=== PATIENT | female | born 1930 | race Caucasian/White ===

== ENCOUNTER 2016-08-21 16:55 | Inpatient (IN) | payer MEDICARE ==
[~2016-08-21] VITALS: Ht 162.6 cm; Wt 79.9 kg
--- NOTE | ~2016-08-21 | CATH ---
Cardiac Diagnostic + PCI Report Demographics Patient Name JESSIE Mayo Gender Female Date of 1930 Age 85 year(s) Patient Number [id number] Date of Study 08/26/2016 Visit Number [id number] Room Number G6316 [place] [id number] Ht 162.56 cm Wt 79.5 kg Referring Crow Reed Primary Physician Physician Performing Andriy Secondary Physician Physician Perla RAO Diagnostic Andriy Assisting Physician Physician Perla RAO Interventional Andriy Physician Aluminum Molding Machine Operator Physician Perla RAO Findings and Conclusions Diagnostic Findings and Conclusion Calcifications involving proximal coronary vessels. RCA stenosis of 90-99%. LAD stenosis 70%. Diagnostic Recommendations PCI of RCA and LAD. Interventional Findings and Conclusion PCI and GEOFF of RCA 90-99% decreased to 0%. PCI and GEOFF of LAD proximal / mid 70% to 0%. Interventional Recommendations Patient was transferred to PCU in stable condition. Patient will be observed overnight. Procedure Description The patient was brought to the diagnostic cardiac catheterization-EP laboratory in the fasting, non-sedated state. Informed consent was obtained in the written and verbal form after the risks and benefits were explained. The patient had no further questions and agreed to proceed. The planned puncture-incision site(s) were shaved and prepped with ChloraPrep and draped in the usual sterile manner. Conscious sedation, supplemental oxygen, and pain control medications were delivered by a registered nurse under physician guidance. Surface ECG rhythm, blood pressure measurement, and pulse oximetry were monitored throughout the procedure. Arterial access. The access site was infiltrated with lidocaine. The vessel was entered with the Seldinger technique. A sheath was advanced into the vessel and used for catheter placement. Selective left coronary angiography. A catheter was advanced into the left coronary vessel ostium under Fluoroscopic guidance. Contrast was injected by hand. Images were obtained in multiple projections. Selective right coronary angiography. A catheter was advanced into the right coronary vessel ostium under fluoroscopic guidance. Contrast was injected by hand. Images were obtained in multiple projections. Left heart catheterization. A catheter was advanced across the aortic valve to the left ventricle under fluoroscopic guidance. Resting hemodynamics were obtained. Stent Placement: A guiding catheter was used to intubate the vessel. A 0.14 wire was used to cross the lesion. A Drug Eluting Stent was placed in the RCA x2. Post placement angiograms were performed. Stent Placement: A guiding catheter was used to intubate the vessel. A 0.14 wire was used to cross the lesion. A Drug Eluting Stent was placed in the LAD. Post placement angiograms were performed. Arterial artery hemostasis was achieved. The patient was transferred to a regular nursing floor via cart accompanied by a nurse. The patient left the laboratory in stable condition. Diagnostic Cath Status: Urgent Interventional Cath Status: Urgent Procedure Procedure Type Diagnostic procedure:Angiography:, Coronary Angios w/[facility] PCI procedure:Drug Eluting Coronary Stent:, LAD, RCA Indications: Arrhythmias, Hypertension, non-sustained VTach and Supraventricular Tachycardia. The procedure was explained in detail to the patient. Risks, complications and alternative treatments were reviewed. Written consent was obtained. Medications Reviewed with Patient prior to Procedure. Angiographic Findings Dominance: Right Cardiac Arteries and Lesion Findings LMCA: Luminal irregularities. LAD: Lesion on Mid LAD: Mid subsection.70% stenosis 18 mm length reduced to 0%. Pre procedure TIFFANY III flow was noted. Post Procedure TIFFANY III flow was present. The guidewire cross was successful.The lesion was diagnosed as a low risk lesion. Devices used - Luge Wire .014 x 182. Number of passes: 1. - Emerge Balloon 3.0 x 15. 2 inflation(s) to a max pressure of: 10 abram. - Alpine Stent 3.25 x 18. 1 inflation(s) to a max pressure of: 14 abram. Lesion on 1st Diag: Proximal subsection.70% stenosis . Comments:Small LCx: Lesion on Prox CX: Proximal subsection.40% stenosis . RCA: Lesion on Prox RCA: Distal subsection.90% stenosis 20 mm length reduced to 0%. Pre procedure TIFFANY II flow was noted. Post Procedure TIFFANY III flow was present. The guidewire cross was successful.The lesion was diagnosed as a high risk lesion.Culprit lesion. Treatment results:Interventional treatment was successful. Devices used - Verrata Pressure Wire. Number of passes: 1. - Luge Wire .014 x 182. Number of passes: 2. - Runthrough NS .014 x 180. Number of passes: 1. - Whisper Wire .014 x 190. Number of passes: 1. - Luge Wire .014 x 300. Number of passes: 1. - Emerge Balloon 2.0 x 15. 1 inflation(s) to a max pressure of: 14 abram. - Emerge Balloon 3.0 x 15. 1 inflation(s) to a max pressure of: 10 abram. - Promus Premier 3.0 x 20 Stent. 1 inflation(s) to a max pressure of: 16 abram. Lesion on Prox RCA: Proximal subsection.8 mm length . Pre procedure TIFFANY II flow was noted. Culprit lesion. Devices used - Promus Premier 3.0 x 8 Stent. 1 inflation(s) to a max pressure of: 17 abram. Lesion on Mid RCA: Mid subsection.50% stenosis . Coronary Tree Procedure Data Procedure Date Date: 08/26/2016Start: 02:13 PMEnd: 04:52 PM Entry Locations - Retrograde Percutaneous access was performed through the Right Femoral artery (Primary location). A 7 Fr sheath was inserted. Closure Comments: Angioseal unsuccessful. Manual pressure held by Michelle Escobar for 20 minutes. Femstop applied at 107mm/hg. Procedure Medications Order and Administration + + + + + !Time !Medication !Dosage !Route ! + + + + + !08/26/2016 02:00 PM !0.9% NaCl !100 ml !I.V. drip ! + + + + + !08/26/2016 02:09 PM !Fentanyl !25 mcg !I.V. ! + + + + + !08/26/2016 02:14 PM !Oxygen !2 l/min !NC ! + + + + + !08/26/2016 02:33 PM !Heparin (ACC_3) !7500 units !I.V. ! + + + + + !08/26/2016 02:36 PM !Integrilin (ACC_7) !mg !I.V. bolus ! + + + + + !08/26/2016 02:45 PM !Heparin (ACC_3) !1000 units !I.V. bolus ! + + + + + !08/26/2016 02:45 PM !Integrilin (ACC_7) !2 mcg/kg/min !I.V. drip ! + + + + + !08/26/2016 02:47 PM !Integrilin (ACC_7) !mg !I.V. bolus ! + + + + + !08/26/2016 03:35 PM !0.9% NaCl !100 ml !I.V. bolus ! + + + + + !08/26/2016 03:36 PM !Nitroglycerin !100 mcg !I.C. ! + + + + + !08/26/2016 03:42 PM !Fentanyl !25 mcg !I.V. ! + + + + + !08/26/2016 03:42 PM !Fentanyl !25 mcg !I.V. ! + + + + + !08/26/2016 03:56 PM !Heparin (ACC_3) !1000 units !I.V. bolus ! + + + + + !08/26/2016 04:08 PM !Fentanyl !25 mcg !I.V. ! + + + + + !08/26/2016 04:50 PM !Plavix (ACC_8) !600 mg !P.O. ! + + + + + !08/26/2016 04:32 PM !Fentanyl !50 mcg !I.V. ! + + + + + !08/26/2016 04:36 PM !Fentanyl !50 mcg !I.V. ! + + + + + !08/26/2016 04:44 PM !Zofran !4 mg ! ! + + + + + !08/26/2016 04:51 PM !Aspirin (ACC_4) !325 mg !P.O. ! + + + + + Devices Used - A6 Fr. BS JL 4 Diag. Catheterwas used for:Left coronary angiography. - A6 Fr. BS JR 4 Diag. Catheterwas used for:Right coronary angiography. - A6 Fr. JR4 Guide Catheterwas used for:RCA Intervention. - A6 Fr. EBU 3.5 Guide Catheterwas used for:LAD Intervention. - A6 Fr. Guidlinerwas used for:LAD Intervention. Contrast Material - Isovue [id number] ml Fluoroscopy Time: Diagnostic: 38:48 minutes. Total: 38:48 minutes. Fluoroscopy Dose: Diagnostic: 4870 mGy. Total: 4870 mGy. Estimated Blood Loss: 50 ml. Medical History Performed Procedures and Imaging Results - Stress testing with SPECT MPIwas performed. Results were: Positive. Risk/Extent of ischemia was: Intermediate risk. History of Disease + +----+--------+ !Diagnosis !Date!Comments! + +----+--------+ !Hypertension ! ! ! + +----+--------+ !Arrhythmias - Supraventricular tachycardias ! ! ! + +----+--------+ !Arrhythmias - Ventricular tachycardias (VT)->Nonsustained VT! ! ! + +----+--------+ Allergies - No known allergies. Risk Factors The patient risk factors include:treated hypercholesterolemia, treated hypertension, family history of premature CAD, last creatinine: 0.9 mg/dl, creatinine clearance: 57.36 ml/min, dyslipidemia and former tobacco use. Admission Data Admission Date: 08/23/2016 Admission Time: 03:35 PM Admit Source: Other Insurance Payors: Medicare. Admission Medications + +------+------+ + + + + !Medication !Dosage!Times !Last !Last !Administered !Comments ! ! ! !Per !Delivery !Delivery ! ! ! ! ! !Day !Date !Time ! ! ! + +------+------+ + + + + !Beta ! ! ! ! !Yes ! ! !Dylan ! ! ! ! ! ! ! !(any) ! ! ! ! ! ! ! + +------+------+ + + + + !Statin ! ! ! ! !Yes ! ! !(any) ! ! ! ! ! ! ! + +------+------+ + + + + Clinical Evaluation Leading to Procedure - There were no CAD presentation symptoms. - There were no anginal symptoms. Anti-anginal medications were prescribed during the past two weeks. The medication is: Beta Blockers. Hemodynamics Condition: Rest O2 Consumption: Estimated: 151.56Heart Rate: 52 bpm Pressures (mmHg) +-----+ + !Site !Pressure ! +-----+ + !AO !154/66 (102) ! +-----+ + !AO !149/68 (99) ! +-----+ + !LV !139/4 ,43 ! +-----+ + !LV !147/4 ,15 ! +-----+ + Shunts Oxygen Values O2 Capacity 184.96 O2 Consumption 151.56 Signatures dtt: Perla Ashraf dtd: 08/26/16 1413 Physician Self Edit
--- NOTE | ~2016-08-21 | ESTC ---
Cardiac Perfusion Imaging Demographics Patient Name JESSIE Mayo Gender Female Patient Number [id number] Race Visit Number [id number] [place] [id number] Room Number G6316 Accession Number [id number] Height 64 inches Date of 1930 Weight 175.3 pounds Interpreting Andriy Duncan Date of study 08/24/2016 Physician Supervising /CHRISSYP Andriy JURADO Technologist Sydni Nelson MD Ordering Physician Andriy Duncan Stress Porter Reed MD computer systems technician Stress ECG Reading Andriy Duncan Nurse Propjhonatan Rogel RN Physician Procedure Admit Source:Other. Procedure Type: Nuclear Stress Test:Pharmacological, Lexiscan, Cardiolite Stress Test Procedure Start time: 08/24/2016 09:19 Indications: Ventricular Tachycardia. Risk Factors The patient risk factors include:former tobacco use, treated hypercholesterolemia, treated hypertension, family history of premature CAD, last creatinine: 0.9 mg/dl, dyslipidemia and creatinine clearance: 57.36 ml/min. Conclusions Summary No TID. Medium inferior moderate ischemia. Medium distal anterior,and apical moderate ischemia. No EKG changes of ischemia. Stress Protocols Resting ECG RSR. PACs. PVCs. Pre-stress physical exam: Un changed. Predicted HR: 135 bpm ECG Findings No ECG changes suggestive of ischemia. Arrhythmias No rhythm abnormality. Symptoms SOB. Stress Interpretation Lexiscan with normal hemodynamic response and SOB. No ischemia. No arrythmias. Imaging Results Applied corrections - Motion correction applied High risk findings Summed scores - Summed stress score: 23 - Summed rest score: 23 - Summed difference score: 0 Stress ejection Ejection fraction:41 % EDV :110 ml ESV :65 ml Stroke volume :45 ml LV mass :161 gr LV size:Normal Normal LV function Imaging Protocols Rest Stress Isotope:Tc99m Sestamibi IV Isotope: Tc99m Sestamibi IV Isotope dose:13.4 mCi Isotope dose:40.8 mCi Date:08/24/2016 07:53 Date:08/24/2016 09:34 Technique: SPECT Technique: Gated Supine SPECT Supine IV remains in place after procedure. Scan Time:45-60 minutes post injection Procedure Medications - Regadenoson (Lexiscan) 0.4 mg IV over 10-15 sec. I.V. 0.4 mg. Medical History Other Previous Procedures + +----+-------+ !Test name !Date!Remarks! + +----+-------+ !Stress testing with SPECT MPI ! ! ! + +----+-------+ Admission Medications + +------+ + + +--------+ !Name !Dosage!Times per day !Start date !Stop date !Details ! + +------+ + + +--------+ !Beta Dylan (any) ! ! ! ! ! ! + +------+ + + +--------+ !Statin (any) ! ! ! ! ! ! + +------+ + + +--------+ Admission Data Admission date: 08/23/2016 Admission Time: 15:35 Hospital Status: Inpatient. Signatures dtt: Perla Ashraf dtd: 08/24/16 0919 Physician Self Edit
--- NOTE | ~2016-08-21 | DS ---
PATIENT'S NAME: PAWAN ROMAN [facility] AGE: 85 Y [address] 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 SECONDARY DIAGNOSES: Bradycardia and that which was ended up being secondary to coronary artery disease and it was status post stent placement. She had right coronary artery with a 90-99% lesion and left anterior descending artery with a 70% lesion and had angioplasty with drug-eluting stent of each. She also developed soft tissue bruising and hematoma in her right flank and right hip area after her catheterization. OTHER DIAGNOSES: Include, 1. Hypertension. 2. Hyperlipidemia. 3. Abdominal wall hernia. 4. 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 DISMISSAL: To [facility] for PT, OT, and rehab to the point where she can hopefully go back home. Of note, the patient also has a known history of being a hoarder , so the family is trying to clean up her place. DISCHARGE MEDICATIONS: Include: 1. Amlodipine 2.5 mg daily. 2. Atenolol 25 mg p.o. twice daily. 3. Aspirin 325 daily. 4. Atorvastatin 80 mg daily. 5. We will stop her simvastatin. 6. She is on Plavix 75 mg daily. 7. Ferrous sulfate 325 one p.o. twice daily, #60 with 3 refills. 8. We are stopping her hydrochlorothiazide. 9. [place] 5/325 one tab every 4 hours p.r.n. pain. 10. Dulcolax 10 mg rectally p.r.n., constipation. 11. Aldactazide 25/25 one tab daily, #30 with 6 refills. 12. Compton as mentioned above. FOLLOWUP: Follow up was with Dr. Talley in [address] Ashraf in 10 days and they wished to have a BMP at that time. PATIENT'S NAME: PAWAN ROMAN [facility] AGE: 85 Y [address] ROOM: G6316 [place], [place] [address] LOCATION: GPCU ADMIT DATE: 08/23/2016 Discharge Summary DISCHARGE DATE: 08/31/2016 FAMILY PHYSICIAN: Roosevelt Talley MD ATTENDING PHYSICIAN: Ac Maria HISTORY OF PRESENT ILLNESS: The patient is an elderly 85-year-old female who presented to Urgent Care on the day of admission, 08/21/2016. She had problems with severe lower back pain. She had had no recent fall and that she had been evaluated already in the emergency room and had a CT scan of her lumbar spine, which did show significant degenerative changes along with abdominal wall hernia. I went ahead and got her some pain medicines and adjusted things and she was tender over her SI joint region and also over her sciatic notch. She ended up going home from Urgent Care and then just did not feel like she could be home, so Dr. Maria was midwife practitioner and went ahead and admitted her to the hospital. She then was found to have these episodes of bradycardia. Dr. Ashraf was consulted. She had an echocardiogram done along with a CT PE protocol. She also had a lower extremity Doppler procedure performed during her stay to follow up on her right groin hematoma after catheterization. The patient's echo showed an EF of 55-60% with normal wall motions and internal dimensions, mild concentric LVH, trivial MR, and trivial TR. She did have a nuclear stress test that was positive, so she underwent a catheterization and was found to have a 90-99% lesion of her RCA and a 70% lesion of her LAD. PTCA and GEOFF were placed in both. The patient then unfortunately had right inguinal hematoma. The Doppler was done and ruled out pseudoaneurysm. She did have a CT PE protocol, which did show no evidence of pulmonary embolism, did show degenerative changes of her spine though. The patient basically has been undergoing PT and OT. She is making good progress. She then had her magnesium replaced, but unfortunately developed some loose stools afterwards. Those have now settled down. Stools for C. diff, O and P, and culture were all negative. She did have 1/3 stool tests positive for blood, but she had active irritated hemorrhoid last time and that was more towards the end of her diarrhea-type stools. That has subsided at this point in time. She continued to have problems with the lower back pain, it really seemed to be more around her sacrum, so I did a CT scan of her pelvis, which did show S1 sacral insufficiency and fracture nondisplaced through the anterior cortex of her sacrum. I really think that explains her back pain. We had a long discussion with the patient and family and we thought it best that she not be at home, so we will go ahead and put her at [facility] where they will be doing restorative care with PT and OT. Hopefully, she will get strong enough that she can go home. The family is working hard on cleaning up her place that she does have a known history of being a hoarder. Dr. Ashraf will see her back in 10 days, and I will see her in about a month. MD SEDRICK CHILD/quincy PATIENT'S NAME: PAWAN ROMAN [facility] AGE: 85 Y [address] ROOM: [place] [address] [facility] ADMIT DATE: 08/23/2016 Discharge Summary DISCHARGE DATE: 08/31/2016 FAMILY PHYSICIAN: Roosevelt Talley MD ATTENDING PHYSICIAN: Ac Maria /[id number] CC: [facility] Perla Ashraf MD d: 08/31/16 2246 t: 09/14/16 1355, DISCHARGE SUMMARY
--- NOTE | ~2016-08-21 | CON ---
PATIENT'S NAME: PAWAN ROMAN [facility] AGE: 85 Y [address] ROOM: [place] [address] LOCATION: GPED ADMIT DATE: 08/21/2016 Consultation DISCHARGE DATE: FAMILY PHYSICIAN: Roosevelt Talley MD ATTENDING PHYSICIAN: Ac Maria DATE OF CONSULTATION: 08/22/2016 REFERRING PHYSICIAN: Perla Ashraf MD Patient of Dr. Maria. Dear Dr. Maria: Thank you for asking me to see Mrs. Roman, who is an 85-year-old female patient, who was hospitalized primarily with back and hip pain. She was found to have bradycardia. She has some fatigability, which is probably the only symptom she has with it at this time. Even on direct questioning, she denies having any chest discomfort or significant shortness of breath. She is somewhat unstable because of discomfort in the feet, so she usually walks with a walker. She retired from [employer] almost 7 years ago and now does not have any structured exercise program but seemed to be in functional class II with no paroxysmal nocturnal dyspnea or orthopnea. There is no lightheadedness, dizziness, syncope, presyncope, palpitations, or ankle swelling. She has known that her heart skips a beat for the past year, and sometimes some of the nurses that she comes in contact with have mentioned that to her. The patient has history of hypertension, elevated cholesterol, and denies type 2 diabetes, tobacco abuse, or family history of premature coronary artery disease. She has no prior history of WI, rheumatic fever, heart murmur, congestive heart failure. During that time, she was monitored overnight. She has short runs of atrial fibrillation. MEDICATIONS: 1. Methylprednisolone 4 mg on a Medrol Pavan. 2. [place] 5/325 one to two tablets every 4 to 6 hours. 3. Atenolol 25 mg b.i.d. 4. Simvastatin 20 mg a day. 5. Hydrochlorothiazide 12.5 mg a day. ALLERGIES: NO KNOWN DRUG ALLERGIES. PAST MEDICAL HISTORY: PATIENT'S NAME: PAWAN ROMAN [facility] AGE: 85 Y [address] ROOM: [place] [address] LOCATION: GPED ADMIT DATE: 08/21/2016 Consultation DISCHARGE DATE: FAMILY PHYSICIAN: Roosevelt Talley MD ATTENDING PHYSICIAN: Ac Maria 1. Hysterectomy. 2. About 15 years back, she apparently had an EP study done in [facility]. 3. Cataract surgery. SOCIAL HISTORY: The patient lives at home. She denies abusing alcohol. Her weight has gone down by 6 pounds. FAMILY HISTORY: No premature coronary artery disease. REVIEW OF SYSTEMS: A 12-point review of systems reveal the following positives: 1. Sinus problems. 2. DJD. PHYSICAL EXAMINATION: VITAL SIGNS: On examination, her blood pressure is 130/70, heart rate is in the 60s and regular now. At the time her EKG was done, her heart rate was in the 40s with complete left bundle-branch block. She did have a short run of atrial fibrillation there. HEENT: Normal. NECK: Supple with no JVD, thyromegaly, lymphadenopathy, or carotid bruit. PMI is not well located. First and second heart sounds are regular. There are no added sounds or murmurs. CHEST: Clear to auscultation. ABDOMEN: Soft and nontender. EXTREMITIES: Reveal no edema. CENTRAL NERVOUS SYSTEM: Overall appears to be intact. ASSESSMENT: An 85-year-old female patient with hypertension and elevated lipids, presenting with mostly low back and hip pain. She was incidentally found to have bradycardia, and her monitoring shows some very short runs of atrial fibrillation. RECOMMENDATIONS: We will check a TSH, rule her out for WI, check a BNP as well as echo and D- dimer. Obviously, her beta-blockers are definitely exerting and effect on her heart rate. Based on the initial evaluation, we will consider making changes in her medications and further monitoring down the line as an outpatient will be more appropriate as well. Again, I appreciate this opportunity to participate in the care of Mrs. Roman. PATIENT'S NAME: PAWAN ROMAN [facility] AGE: 85 Y [address] ROOM: [place] [address] LOCATION: [facility] ADMIT DATE: 08/21/2016 Consultation DISCHARGE DATE: FAMILY PHYSICIAN: Roosevelt Talley MD ATTENDING PHYSICIAN: Ac Maria MD JEROME MCCAIN/quincy /[id number] d: 08/22/16 2316 t: 08/30/16 1234, CONSULTATION REPORT
--- NOTE | ~2016-08-21 | ENPV ---
Vascular Lower Extremities Arterial Duplex Procedure Demographics Patient Name PAWAN ROMAN Date of Study 08/29/2016 Patient Number [id number] Gender Female Date of 1930 Age 85 Visit Number [id number] Height 64 Accession Number [id number] Weight 175.27 Referring Mayank Singh MD Physician Physician Physician Sandie Ashraf Dietary Internship Physician Perla RAO Bus Starter Audrey Adler T, [facility] Conclusions Summary There appears to be no evidence of a pseudoaneurysm. Procedure Type of Study: Extremities Arteries:Lower Extremities Arterial Duplex, Arterial Lower Extremity Right. Indications for Study:Pseudoaneurysm. Appropriate Use Criteria:6 Allergies - No known allergies. Patient Status:Routine. Study Location:Vascular Lab. Technical Quality:Adequate visualization. Risk Factors History of Disease + +----+--------+ !Diagnosis !Date!Comments! + +----+--------+ !Hypertension ! ! ! + +----+--------+ !Arrhythmias - Supraventricular tachycardias ! ! ! + +----+--------+ !Arrhythmias - Ventricular tachycardias (VT)->Nonsustained VT! ! ! + +----+--------+ - The patient's risk factor(s) include: dyslipidemia and treated arterial hypertension. - The patient has a former tobacco history. - The patient's last creatinine was 0.9 mg/dl. Velocities are measured in cm/s ; Diameters are measured in cm LE Duplex Measurements +--------++-----+ +----+---+ + ! !!Right! !Left! ! ! +--------++-----+ +----+---+ + !Location!!PSV !Wave Desc. ! !PSV!Wave Desc. ! +--------++-----+ +----+---+ + !Femoral !!166 ! ! ! ! ! +--------++-----+ +----+---+ + !Prox SFA!!108 ! ! ! ! ! +--------++-----+ +----+---+ + !Mid SFA !!167 ! ! ! ! ! +--------++-----+ +----+---+ + Signature dtt: OBDULIA SMITH dtsuresh: 08/29/16 0957 Physician Self Edit
--- NOTE | ~2016-08-21 | ECHO ---
Transthoracic Echocardiography Report (TTE) Demographics Patient Name PAWAN ROMAN Date of Study 08/23/2016 Patient Number [id number] Visit Number [id number] Date of 1930 Room Number G3324 Gender Female Number Age 85 year(s) Referring Andriy Duncan Wash And Greaser Yary David [facility] Physician MD Mayank Reed MD Physician Interpreting Andriy Duncan Aerial Sprayer Physician Supervising Ordering Andriy Duncan MD/MLP Physician Nurse Stress Gem Setter Conclusions Summary The estimated left ventricular ejection fraction is 55-60% with normal WM and internal dimensions.Mild concentric left ventricular hypertrophy. Trivial MR. There is trivial TR with a pulmonary pressure (RVSP) of 37 mmHg. Procedure Type of Study TTE procedure:2D Echocardiogram, M-Mode, Doppler , Color Doppler. Procedure Date Date: 08/23/2016 Start: 08:03 AM Study Location: Echo Lab Technical Quality: Good visualization Indications:Bradycardia. Appropriate Use Criteria: 9 Patient Status: Routine HR: 78 bpm BP: 152/69 mmHg M-Mode/2D Measurements LV Diastolic Dimension: 4.96 cm LV Systolic Dimension: 3.97 cm LV Septum Diastolic: 1.12 cm LV PW Diastolic: 1.15 cm AO Root Dimension: 2.8 cm Cardiac Output: 5.22 l/min LA Dimension: 3.6 cm EF Estimated: 55 % LVOT: 2 cm LVOT VTI: 21.3 cm RV Base: 2.53 cm LV Stroke volume: 66.88 ml RV Length: 7.08 cm TAPSE: 1.95 cm TDI-S': 14 cm/s Doppler Measurements AV Peak Velocity: 1.65 m/s MV Peak E-Wave: 0.83 m/s AV Peak Gradient: 10.89 mmHg MV Peak A-Wave: 1.04 m/s AV Mean Gradient: 7 mmHg MV E/A Ratio: 0.8 LVOT Peak Velocity: 1.17 m/s MV P1/2t: 75 msec MV Deceleration Time: 268 msec TR Gradient:33.87 mmHg PV Peak Velocity: 1.12 m/s Estimated RAP:3 mmHg PV Peak Gradient: 5.02 mmHg Estimated RVSP: 37 mmHg Estimated PASP: 36.87 mmHg E' Septal Velocity: 0.06 m/s A' Septal Velocity: 0.09 m/s E' Lateral Velocity: 0.09 m/s A' Lateral Velocity: 0.14 m/s Findings Left Ventricle The left ventricle is normal in size .Mild concentric left ventricular hypertrophy.Normal EF and WM. Right Ventricle Normal right ventricle structure and function. Left Atrium Normal left atrial size. Right Atrium Normal right atrial size. Mitral Valve Trivial mitral regurgitation by color Doppler. Aortic Valve The aortic valve is mildly sclerotic. Tricuspid Valve Trivial tricuspid regurgitation by color Doppler. There is mild pulmonary hypertension. The pulmonary pressure (RVSP) is 37 mmHg. Pulmonic Valve Normal pulmonic valve structure and function. Pericardial Effusion No evidence of pericardial effusion. Miscellaneous Visualized portions of the aortic root and ascending aorta appear normal in size. Pleural Effusion No evidence of pleural effusion. Contractility Score LV regional wall motion:(0-Non visualized 1-Normal 2-Hypokinesis 3-Akinesis 4-Dyskinesis 5-Aneurysm) Signature dtt: Perla Ashraf dtd: 08/23/16 0803 Physician Self Edit
--- NOTE | ~2016-08-21 | HP ---
PATIENT'S NAME: PAWAN ROMAN [facility] AGE: 85 Y [address] ROOM: [place] [address] LOCATION: GPED ADMIT DATE: 08/21/2016 History & Physical DISCHARGE DATE: FAMILY PHYSICIAN: Roosevelt Talley MD ATTENDING PHYSICIAN: Ac Maria DATE OF SERVICE: CHIEF COMPLAINT: Back, sacral, and hip pain. HISTORY OF PRESENT ILLNESS: The patient is an 85-year-old female with known history of osteoporosis who started developing a back pain radiating down her hip. The patient tried outpatient therapy but failed. The patient denies any chest pain, shortness of breath, fevers, chills, nausea, vomiting, abdominal pain, headaches, or visual changes. PAST MEDICAL HISTORY: 1. Hernia. 2. Mixed hyperlipidemia. 3. Hypertension. 4. Osteoporosis. 5. Prediabetes. PAST SURGICAL HISTORY: 1. Cataract. 2. Colonoscopy. 3. DEXA scan. 4. Hysterectomy. ALLERGIES: NO KNOWN MEDICAL ALLERGIES. CURRENT MEDICATIONS: Please see list. SOCIAL HISTORY: The patient is a former tobacco user but quit in 1984, and denies any illicit drug use. FAMILY HISTORY: 1. Significant for Alzheimer's. 2. Emphysema. 3. Heart disease. PATIENT'S NAME: PAWAN ROMAN [facility] AGE: 85 Y [address] ROOM: [place] [address] LOCATION: GPED ADMIT DATE: 08/21/2016 History & Physical DISCHARGE DATE: FAMILY PHYSICIAN: Roosevelt Talley MD ATTENDING PHYSICIAN: Ac Maria 4. Hypertension. REVIEW OF SYSTEMS: A complete review of systems obtained and pertinent positives and negatives as mentioned in the HPI. PHYSICAL EXAMINATION: VITAL SIGNS: Temperature is 98.4, heart rate 81, respirations 16, and blood pressure 111/67. She is 92% on room air. GENERAL: The patient is alert and oriented, appears in mild distress due to pain. HEENT: Head; normocephalic and atraumatic. Eyes, conjunctivae clear. No scleral icterus. Mouth; oropharynx is grossly moist and pink. No lesions or exudates. NECK: Supple. No lymphadenopathy or thyromegaly. HEART: Regular rate and rhythm. No rubs, murmurs, or gallops. LUNGS: Clear to auscultation bilaterally. ABDOMEN: Bowel sounds present. Nontender. EXTREMITIES: No cyanosis, clubbing, or edema. VASCULAR: Pulses 2+ and equal bilaterally. SKIN: No rashes or lesions. LYMPHATICS: No lymphadenopathy. NEUROLOGIC: Sensation intact in lower extremities. MUSCULOSKELETAL: Pain with movement in back and down right leg. ASSESSMENT: 1. Right-sided sciatica. 2. Moderate left sacroiliitis. 3. 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 4. Hyperlipidemia. 5. Hypertension. 6. Osteoporosis. 7. Prediabetes. PLAN: At this time, we will admit her and start IV pain medications and try to transition back to the p.o. pain medications. The patient upon arrival to the floor was bradycardic per nurse so we will order EKG. The patient's hypertension is controlled at this time, and we will continue her home medications for lipids. We will do PT and OT to evaluate in the morning and monitor her sugars. PATIENT'S NAME: PAWAN ROMAN [facility] AGE: 85 Y [address] ROOM: [place] [address] LOCATION: ED ADMIT DATE: 08/21/2016 History & Physical DISCHARGE DATE: FAMILY PHYSICIAN: Roosevelt Talley MD ATTENDING PHYSICIAN: Ac Maria MD RLG/celil /[id number] D: 338 T: 253 HISTORY & PHYSICAL
[2016-08-21] MEDS ORDERED: MEDROL4 M1 PO (19:42)
[2016-08-21] MEDS ORDERED: NORCO 5-325 TA1 EACH PO (19:43)
[2016-08-21] MEDS ORDERED: TENORMIN25 MG PO (19:43)
[2016-08-21] MEDS ORDERED: ZOCOR20 MG PO (19:44)
[2016-08-21] MEDS ORDERED: HYDRODIURIL12.5 MG PO (19:45)
[2016-08-22 03:51] LABS: MAGNESIUM 2.1 mg/dL (1.3-2.6); POTASSIUM 3.7 mMol/L (3.7-5.1)
--- NOTE | 2016-08-22 04:02 | NUR ---
Significant Event: Patient alert and oriented x3. Up with one assist and walker. 1 tab norco given twice for lower back pain. CSM within normal limits, equal strength, no numbness or tingling. Left leg slightly more edematous than right. Placed on tele, has had heart rates 40s-80s. Tele has called several times about abnormal rhythms. aware of EKG taken on admission. Potassium and Mag level within normal limits. Patient only complains of feeling dizzy at times and states "sometimes my heart rhythm is abnormal at the clinic". will see today. Very pleasant and cooperative with cares Follow up: cardiology consult, monitor pain
--- NOTE | 2016-08-22 14:13 | NUR ---
Met with patient at bedside today. She is a sweet lady who likes to visit. She lives alone in a small house across from [facility]. She is independent wiht her ADL's prior to this hospitalization. She still drives. She has a sister that lives just north of [place] and a cousin in [place] and both of them check on her on a regular basis. She has a son that lives in [place] and he comes to see her on Monday's. She denies any needs at this time and states her plan is to discharge to home when medically cleared. I explained her observation status with her and had her sign the BLOCK document. Will continue to follow and offer supports as needed.
--- NOTE | 2016-08-22 16:27 | NUR ---
Significant Event: PT A&O x3, forgetful. VSS, on room air, bradycardic at times. PT ambulates with walker, gait belt and SBA. Voiding without difficulties. Pain well controlled with norco 1 tab last at 1320. Follow up:
--- NOTE | 2016-08-23 04:01 | NUR ---
Significant Event:AAOX3, BUT FORGETFUL. ACHS ACCUCHECK WITH MILD SS, NO CORRECTIONS NEEDED. SBA WITH ACTIVITIES, FWW AND GAITBELT. PT ON TELE WITH 2 CALLS DURING SHIFT TO REPORT SEVERAL WAVES OF VTACH, AND IRREGULAR HEART RATE/RHYTHM. MIDNIGHT TROPONIN LEVELS WNL, EKG AT MIDNIGHT AND ONE SCHEDULED FOR AM. 1 [place] ADMINSTERED DURNING SHIFT, LAST AT 2045. HERN[place] NOTED TO ABD, PT DENIES PAIN. PT DENIED NAUSEA THROUGHOUT SHIFT, BUT STATED SHE HAD A DECREASED APPETITE. PIV TO [facility] SL. Follow up:
--- NOTE | 2016-08-23 14:43 | NUR ---
Phone call from Kenna GORMAN on the PEDS floor stating patient's sister has questions as to where she can get a shower bench for patient. I spoke to her sister on the phone and explained to her that Medicare will not cover the cost of a shower bench. I told her about [employer] [facility], but she states she would rather buy one for her. I informed her that she can get shower benches at [facility], [facility], [facility], and even [facility]. She was going to look at [facility] as she thinks it will be best for patient to have one to use all the time. Sister denies any other needs at this time.
[2016-08-23 15:54] LABS: CREATININE 0.8 mg/dL (0.5-1.1); ESTIMATED GFR (MDRD EQUATION) > 60
--- NOTE | 2016-08-23 16:20 | NUR ---
D: PATIENT VITAL SIGNS STABLE PATIENT AFEBRILE. PATIENT HAS BEEN UP IN ROOM, UP TO SHOWER AND UP WITH THERAPY WITH HER WALKER. PATIENT HAS RECEIVED [employer] X 2 LAST AT 1610 FOR COMPLAINTS OF BACK PAIN WHEN AMBULATING. PATIENT DID HAVE ECHO COMPLETED TODAY TO HAVE CT SCAN TO R/O PE THIS EVENING AND TO HAVE A SAMEER SCAN IN THE AM. PATIENT WILL BE NPO AFTER MIDNIGHT AND IS TO HAVE NO CAFFEINE. TELE DID NOT CALL FOR ANY CARDIAC CHANGES TODAY. P: CONTINUE TO MONITOR PATIENT STATUS.
--- NOTE | 2016-08-24 03:08 | NUR ---
Significant Event: I ASSUMED CARES FOR THIS PATIENT AT 2200. SEVERAL RUNS OF BRADYCARDIA INTO THE 30'S. NO CHEST PAIN STATED. C/O BACK PAIN ON LOWER RT SIDE AND HIP. AMBULATES WITH ASSIST OF 1 TO BATHROOM. UNSTEADY AND USES WALKER CORRECTLY. NO STOOLS PASSED THIS SHIFT. STATES SHE IS CONSTIPATED. REMAINS NPO SINCE 0001 FOR SCANS TODAY. NO CAFFEINE GIVEN. MEDROL DOSE PACK CAUGHT UP TO TODAY. NORCO GIVEN AT 0100 FOR PAIN. SLEPT WELL INTERMITTENTLY. Follow up: SCAN TODAY
--- NOTE | 2016-08-24 15:45 | NUR ---
Significant event: Up in chair. Up in room with one assist, gait belt and walker gait steady. [place] twice, last at 1200. No calls from telemetry today.
--- NOTE | 2016-08-25 04:04 | NUR ---
Significant Event: Patient is alert and oriented x 3. On room air. HRs mainly in the 50s-60s. On telemetry. One call this shift for patient's HRs dropping to the 30s and was in heart block. MD aware of this happening last night. Patient was asymptomatic, no chest pain. SBPs in the 120s-130s. Afebrile. Up with 1 assist, walker, and gait belt. [place] given for back pain x 2, last at 0249. ACHS accuchecks. Voiding well. No BM this shift. Right forearm IV, saline locked. Patient is pleasant and cooperative with cares. Follow up:
[2016-08-25 11:15] LABS: BASOPHIL # 0.1 K/uL (0.0-0.2); BASOPHIL % 0.5 %; EOSINOPHIL # 0.1 K/uL (0.0-0.5); EOSINOPHIL % 0.8 %; HEMATOCRIT 42.1 % (30.0-46.0); HEMOGLOBIN 13.6 g/dL (10.0-15.0); IMMATURE GRANULOCYTE # 0.1 K/uL (0.0-0.3); IMMATURE GRANULOCYTE % 0.7 %; LYMPHOCYTE # 1.2 K/uL (0.8-4.0); LYMPHOCYTE % 11.4 %; MCH 31.1 pg (27.0-34.0); MCHC 32.3 gm/dL (32.0-36.5); MCV 96.1 fl (83.0-98.0); MONOCYTE % 9.4 %; MPV 11.1 fl (9.4-12.4); NEUTROPHIL # (ANC) 7.9 K/uL (1.8-7.8); NEUTROPHIL % 77.2 %; NRBC % 0 /100WBC (0-0.00); PLATELET COUNT 219 K/uL (150-450); RBC 4.38 M/uL (3.00-5.00); RDW-CV 14.4 % (11.9-14.6); WBC 10.3 K/uL (4.0-11.0)
[2016-08-25 11:28] LABS: ANION GAP 8.6 (10.0-19.0); CALCIUM 8.1 mg/dL (8.5-10.5); CREATININE 0.9 mg/dL (0.5-1.1); POTASSIUM 3.6 mMol/L (3.7-5.1)
--- NOTE | 2016-08-25 13:38 | NUR ---
Met with patient this morning. She is scheduled to have a cath tomorrow afternoon. She states that her son and her have decided that she needs to go to a long term facility following the procedure for strengthening before returning home. Patient first choice is to go to [facility] and her second choice is [facility]. I let patient know that another CM will be following her after her procedure as she willl likely transfer to another floor. I made referrals to [facility] and [facility] for patient. I did fax information to both facilities, but will need to send additional information once her hearth cath has been done. CM department will continue to follow.
--- NOTE | 2016-08-25 16:12 | NUR ---
D: PATIENT VITAL SIGNS STABLE PATIENT AFEBRILE. PATIENT DID AGREE TO HAVE CARDIAC CATHERIZATION TOMORROW AT 1400. PATIENT WILL NEED TO HAVE GROIN PREP IN AM. PATIENT DID HAVE A BOWEL MOVEMENT TODAY NORCO X 2 LAST AT 1420 FOR BACK DISCOMFORT. SALINE LOCK INTACT.
--- NOTE | 2016-08-26 03:46 | NUR ---
Significant Event:Showered last evening with assist. Ate most of supper & then up in the recliner @ 0300 & ate all of hs snack. Has taken [place] a couple of times for c/o right hip & lower back discomfort. Ambulates with gait belt & walker. Did take an Ativan for c/o nerves & did have relief with that. Will be NPO after breakfast, for cardiac catherization. I plan to do her prep shave before I leave today.
--- NOTE | 2016-08-26 05:00 | NUR ---
Dr. Joiner here with visit with patient. Groin shaved after he left. Area washed with soap & water & patted dry.
--- NOTE | 2016-08-26 10:12 | NUR ---
A - PT SCREENED D/T LOS. HT: 64" WT: 175# BMI: 30.1. LABS: ACCUCHECK WNL-REAS, K+ 3.6, GLU 110, CRP 1.2. MEDS: HYDRODIURIL, SSI, BOWEL/NAUSEA. DIET: REG. INTAKE: MOSTLY 50-100% EST NEEDS: [id number] KCAL (15-20 KCAL/KG), 64-80 G PRO (0.8-1 G/KG), 2370 ML FLUID (30 ML/KG) D - NO NUTRITION RELATED DIAGNOSIS IDENTIFIED AT THIS TIME. I - GOAL FOR INTAKE TO REMAIN 50-100% FOR DURATION OF STAY. M/E - WILL ASSIST NEEDED.
--- NOTE | 2016-08-26 12:12 | NUR ---
Significant Event: Alert & oriented but forgetful, repeats self. VSS on tele HR 50-60's, afebrile, room air. Trace edema to left leg. Back pain tolerable after one tab [place], last at 0527. Ativan given at 1123 for nerves/anxiety related to upcoming heart cath, scheduled for 1400 today. Ambulates 1 assist, gaitbelt, walker. Up in chair. IV to R) wrist SL. No caffiene. NPO since 1000. Plans to transfer to PCU after heart cath. Follow up: Monitor redness to abdominal folds. Pito GILBERT.
--- NOTE | 2016-08-26 16:37 | NUR ---
Phone call from Ainsley at [facility] stating she will come and assess patient on Monday morning, August 29.
--- NOTE | 2016-08-26 19:44 | NUR ---
Significant Event: SBP 120-130'S. HR 70-80'S WITH ECTOPY(PVC'S) NOTED. NO C/O PAIN. BEDREST POST-HEART CATH UNTIL ACT <150 THEN AT LEAST 6 HOURS AFTER WITH FEMSTOP REMAINING IN PLACE UNTIL RELEASED SLOWLY AFTER 6 HOUR SERVANDO FROM ACT <150. NS AT 100ML/HR X750ML AND INTEGRILIN GTT X6 HOURS UNTIL 2044 VIA R) PIV. A/O X3. BEDPAN WITH SLIGHT INCONTINENCE. REPOSITION 1-2 ASSIST. Follow up: ACT AT 1900. RECHECK Q1HOUR UNTIL <150 THEN TO LEAVE FEMSTOP ON FOR 6 MORE HOURS UNTIL GRADUALLY RELEASING PRESSURE. INTEGRILIN OFF AT 2044.
[2016-08-26 22:21] LABS: HEMATOCRIT 38.2 % (30.0-46.0); HEMOGLOBIN 12.2 g/dL (10.0-15.0)
--- NOTE | 2016-08-27 04:43 | NUR ---
Patient A/Ox3. VSS. Held PM blood pressure medications d/t BP in 80's while sleeping but while awake BP low 100's. Lungs clear. Bowel sounds present. Uses bedpan d/t being on bedrest. Rt groin has femstop on it hematoma marked, site bruised and tender to touch. Have started to decrease pressure in femstop but need to reinflate d/t slight ozzing. Iv to Rt forearm. [place] x1 for Rt hip pain.
[2016-08-27 06:13] LABS: BASOPHIL # 0.1 K/uL (0.0-0.2); BASOPHIL % 0.3 %; EOSINOPHIL # 0.1 K/uL (0.0-0.5); EOSINOPHIL % 0.6 %; HEMATOCRIT 37.7 % (30.0-46.0); IMMATURE GRANULOCYTE # 0.1 K/uL (0.0-0.3); IMMATURE GRANULOCYTE % 0.6 %; LYMPHOCYTE # 1.9 K/uL (0.8-4.0); LYMPHOCYTE % 13.1 %; MCH 31.3 pg (27.0-34.0); MCHC 31.8 gm/dL (32.0-36.5); MCV 98.4 fl (83.0-98.0); MONOCYTE # 1.3 K/uL (0.0-1.0); MONOCYTE % 8.7 %; MPV 10.9 fl (9.4-12.4); NEUTROPHIL # (ANC) 11.1 K/uL (1.8-7.8); NEUTROPHIL % 76.7 %; NRBC % 0 /100WBC (0-0.00); PLATELET COUNT 233 K/uL (150-450); RBC 3.83 M/uL (3.00-5.00); RDW-CV 14.6 % (11.9-14.6); WBC 14.5 K/uL (4.0-11.0)
[2016-08-27 06:29] LABS: ALBUMIN 2.8 gm/dL (3.5-5.0); ANION GAP 11.9 (10.0-19.0); CALCIUM 7.8 mg/dL (8.5-10.5); CREATININE 0.9 mg/dL (0.5-1.1); POTASSIUM 3.9 mMol/L (3.7-5.1); TOTAL BILIRUBIN 0.7 mg/dL (0.0-1.5); TOTAL PROTEIN 5.8 g/dL (6.0-8.4)
--- NOTE | 2016-08-27 17:07 | NUR ---
Significant Event: FEMSTOP OFF THIS AM WITH PRESSURE DRESSING, GAUZE/TEGADERM C/D/I. ECCHYMOSIS DOWN INNER RIGHT THIGH AND OVER TO HIP AREA. HEMATOMA MEASURED 12 INCH X5 INCH. NO CHANGES ALL SHIFT. UP IN CHAIR MOST OF DAY. PT/OT. VOIDS ADEQ AMT WITH SCANT BM X1. PIV TO R) HAND SL'D. NORCO 1 TAB GIVEN X2 LAST AT 1600 WITH RELIEF NOTED. ACHS ACCUCHECKS. AMBULATES 1PA WITH WALKER AND GAIT BELT. Follow up: PAIN MANAGEMENT. MONITOR CHANGES TO RIGHT GROIN HEMATOMA. CONT PER PLAN OF CARE.
--- NOTE | 2016-08-28 04:44 | NUR ---
A/O. HR 50-80s. SBP 100-110s. AFEBRILE. ROOM AIR. LG HEMATOMA TO R) GROIN NO CHANGES TENDER. C/O BACK PAIN. NORCO 1TAB x2. 1A WALKER TO COMMODE.
[2016-08-28 05:35] LABS: BASOPHIL # 0.1 K/uL (0.0-0.2); BASOPHIL % 0.4 %; EOSINOPHIL # 0.1 K/uL (0.0-0.5); EOSINOPHIL % 0.6 %; HEMATOCRIT 31.5 % (30.0-46.0); HEMOGLOBIN 10.1 g/dL (10.0-15.0); IMMATURE GRANULOCYTE # 0.1 K/uL (0.0-0.3); IMMATURE GRANULOCYTE % 0.5 %; LYMPHOCYTE # 1.6 K/uL (0.8-4.0); LYMPHOCYTE % 13.1 %; MCHC 32.1 gm/dL (32.0-36.5); MCV 96.6 fl (83.0-98.0); MONOCYTE # 1.2 K/uL (0.0-1.0); MONOCYTE % 9.9 %; MPV 11.1 fl (9.4-12.4); NEUTROPHIL # (ANC) 9.4 K/uL (1.8-7.8); NEUTROPHIL % 75.5 %; NRBC % 0 /100WBC (0-0.00); PLATELET COUNT 191 K/uL (150-450); RBC 3.26 M/uL (3.00-5.00); RDW-CV 14.6 % (11.9-14.6); WBC 12.5 K/uL (4.0-11.0)
[2016-08-28 05:49] LABS: CALCIUM 7.5 mg/dL (8.5-10.5)
[2016-08-28 05:52] LABS: ANION GAP 12.1 (10.0-19.0); POTASSIUM 4.1 mMol/L (3.7-5.1)
--- NOTE | 2016-08-28 16:16 | NUR ---
Significant Event: ECCHYMOSIS TO RIGHT GROIN MARKED WITH NO CHANGES ALL SHIFT. CONTINUES TO BE SOFT AND HEMATOMA RESOLVING. VSS ON RA. NORCO 1 TAB GIVEN THIS AM FOR BACK PAIN WELL K-PAD PLACED TO LOWER BACK WITH RELIEF. PATIENT STIFF WHEN FIRST ARISING OUT OF CHAIR. REFUSED TO AMBULATE TODAY. VOIDS ADEQ AMT. NO BM TODAY. PIV TO R) HAND SL'D. Follow up: PATIENT TALKS ABOUT [facility] AFTER D/C. CARE MANAGEMENT TO LOOK INTO DISCHARGE PLAN. CONT TO MONITOR AND MANAGE PAIN CONTROL.
--- NOTE | 2016-08-29 04:10 | NUR ---
A/O. HR 50-60s. SBP 110-130. ROOM AIR. AFEBRILE. NORCOx1. MORHINEx1 FOR BACK PAIN. HEMATOMA/ECCHYMOSIS TO R) GROIN CATH SITE REMAINS SAME. KPAD FOR BACK IN USE. INCON LG VOIDx1. NO BM. 1A WALKER GAITBELT.
[2016-08-29 05:50] LABS: BASOPHIL # 0.1 K/uL (0.0-0.2); BASOPHIL % 0.5 %; EOSINOPHIL # 0.1 K/uL (0.0-0.5); EOSINOPHIL % 1.1 %; HEMATOCRIT 28.9 % (30.0-46.0); HEMOGLOBIN 9.3 g/dL (10.0-15.0); IMMATURE GRANULOCYTE # 0.1 K/uL (0.0-0.3); IMMATURE GRANULOCYTE % 0.5 %; LYMPHOCYTE # 1.2 K/uL (0.8-4.0); LYMPHOCYTE % 12.9 %; MCH 31.1 pg (27.0-34.0); MCHC 32.2 gm/dL (32.0-36.5); MCV 96.7 fl (83.0-98.0); MONOCYTE % 10.2 %; MPV 11.1 fl (9.4-12.4); NEUTROPHIL % 74.8 %; NRBC % 0 /100WBC (0-0.00); PLATELET COUNT 196 K/uL (150-450); RBC 2.99 M/uL (3.00-5.00); RDW-CV 14.6 % (11.9-14.6); WBC 9.4 K/uL (4.0-11.0)
--- NOTE | 2016-08-29 10:35 | NUR ---
Phone call from Chichi at [facility] stating she was in the building to assess patient and needed to know the room number. I informed her that patient did transfer to [place] [address]. I also let her know that Vonnie will be the CM following her now.
--- NOTE | 2016-08-29 17:51 | NUR ---
Significant Event: A/Ox3. [id number]. P-50-80s. Afebrile. Room air. R) AFA IV saline locked. Up with 1A. [place] given x2 last at 1437 for back pain. Mag 2grams IV given x1. Need to hematest all stools. [facility] and Mother [facility]sea both came to eval patient for possbile placement. Pleasant and cooperative with cares.
[2016-08-30 03:37] LABS: HEMATOCRIT 33.6 % (30.0-46.0); HEMOGLOBIN 10.9 g/dL (10.0-15.0)
[2016-08-30 03:54] LABS: ANION GAP 10.4 (10.0-19.0); BLOOD UREA NITROGEN 23 mg/dL (6-24); CALCIUM 7.8 mg/dL (8.5-10.5); CHLORIDE 104 mMol/L (96-110); CO2 28 mMol/L (22-32); CREATININE 0.7 mg/dL (0.5-1.1); ESTIMATED GFR (MDRD EQUATION) > 60; POTASSIUM 3.4 mMol/L (3.7-5.1); SODIUM 139 mMol/L (135-145)
[2016-08-30 03:55] LABS: MAGNESIUM 2.7 mg/dL (1.3-2.6)
--- NOTE | 2016-08-30 04:34 | NUR ---
PT A/O X4. VSS ON RA AFEBRILE. SBA X1 WITH FWW/GB. HAS HAD MULTIPLE LOOSE/LIQUID STOOLS. HEMATEST POSTIVE-PT STATES HAS AN OCCASIONAL BLEEDING HEMROID THOUGH. HR IS ALL OVER THE PLACE WITH AMBULATION-PATCHES CHANGED MULTIPLE TIMES-GETS VERY ARTIFACTY SO IT IS HARD TO TELL WHAT IS REAL AND WHAT ISN'T. RESTING IN BED HR 50-100. HEMATOMA REMAINS THE SAME. BRUSING HAS GROWN ON R HIP. BILAT FEET COLD BUT PT STATES THAT IS NORMAL FOR HER. H/H WNL THIS AM. PLAN: [facility] OR [facility] MATTSON TODAY?
--- NOTE | 2016-08-30 15:11 | NUR ---
Significant Event: A/O. VSS on RA. Multiple episodes of ectopy - triplet PVCs and a 4 beat run of vtach. DR Ashraf notified - MG and KCL replaced. Lopressor ordered. UP with 1 assist and gaitbelt. Hematoma remains unchanged. [place] for pain. Follow up: Plan to dismiss to [facility] at 1230 tomorrow, Dr Rollins's nurse notified.
--- NOTE | 2016-08-30 15:48 | NUR ---
Updated patient that both [facility] and [facility] will accept patient. She chose [facility]. I did update Ainsley at [facility] of patients choice. Orders on chart.
[2016-08-31 04:52] LABS: BASOPHIL % 0.5 %; EOSINOPHIL # 0.2 K/uL (0.0-0.5); EOSINOPHIL % 2.2 %; HEMATOCRIT 29.8 % (30.0-46.0); HEMOGLOBIN 9.6 g/dL (10.0-15.0); IMMATURE GRANULOCYTE % 0.3 %; LYMPHOCYTE # 1.3 K/uL (0.8-4.0); LYMPHOCYTE % 14.4 %; MCH 31.4 pg (27.0-34.0); MCHC 32.2 gm/dL (32.0-36.5); MCV 97.4 fl (83.0-98.0); MONOCYTE % 11.5 %; MPV 10.8 fl (9.4-12.4); NEUTROPHIL # (ANC) 6.2 K/uL (1.8-7.8); NEUTROPHIL % 71.1 %; NRBC % 0 /100WBC (0-0.00); PLATELET COUNT 220 K/uL (150-450); RBC 3.06 M/uL (3.00-5.00); RDW-CV 14.7 % (11.9-14.6); WBC 8.8 K/uL (4.0-11.0)
--- NOTE | 2016-08-31 04:56 | NUR ---
Significant Event: Patient alert and oriented, complained of pain @ HS and relief noted with single tab norco. Patient on RA, ambulates with assist x1 and walker/GB to bathroom. Repositions self. Bruising/hematoma on Right hip/thigh unchanged throughout shift. Patient does not appear to be in distres. Follow up: Continue to monitor per POC, DC today. Meds on chart awaiting orders.
[2016-08-31 05:07] LABS: ANION GAP 13.2 (10.0-19.0); BLOOD UREA NITROGEN 19 mg/dL (6-24); CALCIUM 7.6 mg/dL (8.5-10.5); CHLORIDE 106 mMol/L (96-110); CO2 25 mMol/L (22-32); CREATININE 0.7 mg/dL (0.5-1.1); ESTIMATED GFR (MDRD EQUATION) > 60; POTASSIUM 4.2 mMol/L (3.7-5.1); SODIUM 140 mMol/L (135-145)
[2016-08-31 05:09] LABS: MAGNESIUM 2.9 mg/dL (1.3-2.6)
--- NOTE | 2016-08-31 12:05 | NUR ---
Patient A/O x3. VS stable on RA. Patient 1 assist transfer with gaitbelt and walker. Hematoma to R) groin remains unchanged. Bruising to the R) groin and thigh area, improving, MDs aware. Reddened area under breasts. Patient denies numbness or tingling to extremities. Can move all extremities spantaneoulsy and on command. Patient does complain of pain to back and groin area, given 1 [place] tab last at 1200. Patient on ACHS accuchecks with mild sliding scale, no insuling given this AM. On a diabetic/cardiac diet. Patient takes meds on at a time depending on size of pill. Very pleasant and cooperative with cares.
== END 2016-08-31 12:45 | DRG 247 ==
LOC: GMED 16:55 → EDSTATUS 17:05 → GPED 17:22 → GPCU 08-26 17:02
PROVIDERS: Internal Medicine Interventional Cardiology; Obstetrics & Gynecology Obstetrics; ADMIT Family Medicine
PROC: 4A023N7 Measurement of Cardiac Sampling and Pressure, Left Heart, Percutaneous Approach (ICD-10-PCS; principal; 2016-08-26)
PROC: B2151ZZ Fluoroscopy of Left Heart using Low Osmolar Contrast (ICD-10-PCS; principal; 2016-08-26)
PROC: 3E033PZ Introduction of Platelet Inhibitor into Peripheral Vein, Percutaneous Approach (ICD-10-PCS; principal; 2016-08-26)
PROC: B2111ZZ Fluoroscopy of Multiple Coronary Arteries using Low Osmolar Contrast (ICD-10-PCS; principal; 2016-08-26)
PROC: 027136Z Dilation of Coronary Artery, Two Arteries with Three Drug-eluting Intraluminal Devices, Percutaneous Approach (ICD-10-PCS; principal; 2016-08-26)
DX: I49.5 Sick sinus syndrome (principal); I47.2 Ventricular tachycardia; I48.91 Unspecified atrial fibrillation; M84.48XA Pathological fracture, other site, initial encounter for fracture; I97.630 Postprocedural hematoma of a circulatory system organ or structure following a cardiac catheterization; I25.10 Atherosclerotic heart disease of native coronary artery without angina pectoris; I25.84 Coronary atherosclerosis due to calcified coronary lesion; M46.1 Sacroiliitis, not elsewhere classified; M47.816 Spondylosis without myelopathy or radiculopathy, lumbar region; M54.41 Lumbago with sciatica, right side; E78.2 Mixed hyperlipidemia; K43.9 Ventral hernia without obstruction or gangrene; R73.03 Prediabetes; M81.0 Age-related osteoporosis without current pathological fracture; I10 Essential (primary) hypertension; Z98.49 Cataract extraction status, unspecified eye
CPT/HCPCS: A9270; A9500; C1725; C1760; C1769; C1874; C1887; C9600; G0378; G0379; J0461; J0583; J1327; J1644; J2250; J2270; J2370; J2405; J2785; J3010; J3475; J7030; J7060; Q9967

== ENCOUNTER → 2016-09-12 | Outpatient (CLI) | payer MEDICARE ==
[~2016-09-12] MED LIST: HYDRODIURIL12.5 MG PO; MEDROL4 M1 PO; NORCO 5-325 TA1 EACH PO; TENORMIN25 MG PO; ZOCOR20 MG PO
== END | disposition disaster alternative care site (69) ==
LOC: LGSOS 10:53
DX: R00.1 Bradycardia, unspecified (principal)

== ENCOUNTER → 2016-12-12 | Outpatient (CLI) | payer MEDICARE ==
[2016-12-12 09:48] LABS: ALBUMIN 3.6 gm/dL (3.5-5.0); TOTAL BILIRUBIN 0.7 mg/dL (0.0-1.5); TOTAL PROTEIN 7.2 g/dL (6.0-8.4)
== END | disposition disaster alternative care site (69) ==
LOC: LGSOS 09:14
PROVIDERS: Internal Medicine Interventional Cardiology
DX: R00.1 Bradycardia, unspecified (principal)